=== PATIENT | female | born 1975 | race Caucasian/White ===

== ENCOUNTER 2016-09-06 21:46 | Emergency (ER) | payer MEDICAID ==
[~2016-09-06] VITALS: Ht 162.6 cm; Wt 104.5 kg
[2016-09-06] MEDS ORDERED: KETOROLAC 30 MG/1 ML IM ONE (23:00)
[2016-09-06] MEDS ORDERED: HYDROmorphone 2 MG/ML, 1ML IM ONE (23:00)
[2016-09-06] MEDS ORDERED: HYDROmorphone 2 MG/ML, 1ML ONE (23:06)
[2016-09-06] MEDS ORDERED: KETOROLAC 30 MG/1 ML ONE (23:06)
[2016-09-06] MEDS ORDERED: DEXAMETHASONE 4 MG TABLET PO ONE (23:30)
[2016-09-06] MEDS ORDERED: DEXAMETHASONE 4 MG/ML, 5ML ONE (23:39)
[2016-09-06] MEDS ORDERED: DEXAMETHASONE 4 MG TABLET ONE (23:47)
[2016-09-07] MEDS ORDERED: DIAZEPAM 5 MG TABLET PO ONE (01:00)
[2016-09-07] MEDS ORDERED: DIAZEPAM 5 MG TABLET ONE (01:04)
[2016-09-07] MEDS ORDERED: OXYcodone/APAP 10/325MG TABLET PO ONE (02:00)
[2016-09-07] MEDS ORDERED: OXYcodone/APAP 10/325MG TABLET ONE (02:02)
[2016-09-07 02:07] VITALS: BP 138/89
== END 2016-09-07 02:11 | disposition home or self-care (01) ==
LOC: ED 23:59
DX: M54.41 Lumbago with sciatica, right side (principal)
CPT/HCPCS: 96372; 99284; J1170; J1885

== ENCOUNTER 2017-01-03 05:19 | Day surgery (SDC) | payer MEDICAID ==
[~2017-01-03] VITALS: Ht 162.6 cm; Wt 98.6 kg
[2017-01-03] MEDS ORDERED: LACTATED RINGERS 1,000 ML IV SCH (06:20)
[2017-01-03] MEDS ORDERED: GABA100C PO (06:23)
[2017-01-03] MEDS ORDERED: ESCI20TA10 PO (06:23)
[2017-01-03] MEDS ORDERED: LEVO88TA4 PO (06:23)
[2017-01-03] MEDS ORDERED: LOSA100T6 PO (06:23)
[2017-01-03 06:27] VITALS: BP 117/78
[2017-01-03 06:28] LABS: HCG UR LOT HCG7030192
[2017-01-03] MEDS ORDERED: LIDOCAINE 1%, 2ML ONE (06:33)
[2017-01-03 06:36] LABS: HCG UR OBC PASS
[2017-01-03] MEDS ORDERED: PROPOFOL 10 MG/ML, 20ML ONE (06:52)
[2017-01-03] MEDS ORDERED: MIDAZOLAM 1 MG/ML, 2ML ONE ×2 (06:52→09:25)
[2017-01-03] MEDS ORDERED: FENTANYL PF 100 MCG/2ML ONE ×3 (06:52→08:30)
[2017-01-03] MEDS ORDERED: ROCURONIUM 10 MG/ML ONE ×2 (06:52→07:26)
[2017-01-03] MEDS ORDERED: SUCCINYLCHOLINE 20 MG/ML, 10ML ONE (06:53)
[2017-01-03] MEDS ORDERED: BUPIVACAINE LIPOSOME/PF INFIL ONE (06:54)
[2017-01-03] MEDS ORDERED: BUPIVACAINE/PF 0.5% ONE (06:55)
[2017-01-03] MEDS ORDERED: TRANEXAMIC ACID 100 MG/ML, 10ML ONE (06:55)
[2017-01-03] MEDS ORDERED: THROMBIN 5,000 UNIT VIAL TP ONE (06:56)
[2017-01-03] MEDS ORDERED: LIDOCAINE/MPF 2%-EPI 1:200K, 20 ML ONE (06:56)
[2017-01-03] MEDS ORDERED: VANCOMYCIN 1,000 MG ONE (06:56)
[2017-01-03] MEDS ORDERED: DEXAMETHASONE 4 MG/ML, 1ML ONE ×2 (07:16)
[2017-01-03] MEDS ORDERED: KETOROLAC 30 MG/1 ML ONE (07:26)
[2017-01-03] MEDS ORDERED: ONDANSETRON 2MG/ML, 2ML ONE (07:26)
[2017-01-03] MEDS ORDERED: KETAMINE 10 MG/ML, 20ML ONE (08:02)
[2017-01-03] MEDS ORDERED: LABETALOL 5MG/ML, 20ML IV PRN (08:30)
[2017-01-03] MEDS ORDERED: FENTANYL PF 100 MCG/2ML IV PRN (08:30)
[2017-01-03] MEDS ORDERED: MIDAZOLAM 1 MG/ML, 2ML IV PRN (08:30)
[2017-01-03] MEDS ORDERED: PROMETHAZINE 25 MG/ML, 1ML IV PRN (08:30)
[2017-01-03] MEDS ORDERED: hydrALAzine 20 MG/ML, 1ML IV PRN (08:30)
[2017-01-03] MEDS ORDERED: MEPERIDINE/PF 25MG/0.5ML IVPush PRN (08:30)
[2017-01-03] MEDS ORDERED: ACETAMINOPHEN 325 MG TABLET PO PRN (08:30)
[2017-01-03] MEDS ORDERED: ONDANSETRON 2MG/ML, 2ML IVPush PRN (08:30)
[2017-01-03] MEDS ORDERED: OXYcodone 5 MG/5 ML ORAL.SOL UDC PO PRN (08:30)
[2017-01-03] MEDS ORDERED: HYDROmorphone 1 MG/ML, 1ML ONE (08:59)
[2017-01-03] MEDS ORDERED: HYDROmorphone 2 MG/ML, 1ML ONE ×2 (09:18→09:45)
[2017-01-03] MEDS ORDERED: ACETAMINOPHEN 650 MG/20.3 ML UDC ONE (09:18)
[2017-01-03] MEDS ORDERED: OXYcodone 5 MG/5 ML ORAL.SOL UDC ONE (09:18)
[2017-01-03] MEDS: HYDROmorphone 1 MG/ML, 1ML IV PRN ×7 (09:20→09:55)
[2017-01-03] MEDS ORDERED: ALBUTEROL SULFATE 2.5 MG/3 ML ONE (10:19)
[2017-01-03] MEDS ORDERED: ALBUTEROL SULFATE 2.5 MG/3 ML NPPB PRN (10:30)
== END 2017-01-03 12:20 ==
LOC: OUT 05:19
PROVIDERS: ATTEND Orthopaedic Surgery Orthopaedic Surgery of the Spine
DX: M51.26 Other intervertebral disc displacement, lumbar region (principal); Z87.39 Personal history of other diseases of the musculoskeletal system and connective tissue; Z88.6 Allergy status to analgesic agent
CPT/HCPCS: 63030; 72100; 81025; 94640; C9290; J1100; J1170; J1885; J2250; J2405; J2704; J3010; J3370; J3490; J7120; J0330

== ENCOUNTER 2017-03-29 10:43 | Emergency (ER) | payer MEDICAID ==
[~2017-03-29] VITALS: Ht 154.9 cm; Wt 110.9 kg
[~2017-03-29 10:43] MED LIST: ESCI20TA10 PO; GABA100C PO; LEVO88TA4 PO; LOSA100T6 PO
[2017-03-29] MEDS ORDERED: SODIUM CHLORIDE 0.9% 1,000ML IVBOLUS ONE (12:30)
[2017-03-29] MEDS ORDERED: DIPHENHYDRAMINE 50 MG/ML, 1ML IV ONE (12:30)
[2017-03-29] MEDS ORDERED: KETOROLAC 30 MG/1 ML IVPush ONE (12:30)
[2017-03-29] MEDS ORDERED: METOCLOPRAMIDE 5 MG/ML, 2ML IVPush ONE (12:30)
[2017-03-29] MEDS ORDERED: ALBUTEROL/IPRATROPIUM 2.5MG/0.5MG, 3 ML NPPB ONE (12:30)
[2017-03-29] MEDS ORDERED: DEXAMETHASONE 4 MG/ML, 1ML IVPush ONE (12:30)
[2017-03-29] MEDS ORDERED: ACETAMINOPHEN 500 MG TABLET PO ONE (12:30)
[2017-03-29] MEDS ORDERED: SODIUM CHLORIDE FLUSH 10ML SYR IVF ONE (12:30)
[2017-03-29] MEDS ORDERED: DEXAMETHASONE 4 MG/ML, 1ML ONE (12:38)
[2017-03-29] MEDS ORDERED: KETOROLAC 30 MG/1 ML ONE (12:38)
[2017-03-29] MEDS ORDERED: METOCLOPRAMIDE 5 MG/ML, 2ML ONE (12:38)
[2017-03-29] MEDS ORDERED: DIPHENHYDRAMINE 50 MG/ML, 1ML ONE (12:38)
[2017-03-29] MEDS ORDERED: ACETAMINOPHEN 500 MG TABLET ONE (12:38)
[2017-03-29] MEDS ORDERED: ALBUTEROL/IPRATROPIUM 2.5MG/0.5MG, 3 ML ONE (12:55)
[2017-03-29 12:56] LABS: RAPID INFLUENZA A Negative (Negative); RAPID INFLUENZA B Negative (Negative)
[2017-03-29 13:14] LABS: BASOPHILS # (AUTO) 0.18 x10^3/uL (0-0.1); BASOPHILS % (AUTO) 2 % (0-1); EOSINOPHILS % (AUTO) 4 % (1-7); LYMPHOCYTES # (AUTO) 3.33 x10^3/uL (1-3.4); LYMPHOCYTES % (AUTO) 34 % (22-44); MD NO; MEAN CORPUSCULAR HGB CONC 33.9 g/dL (32.4-35.8); MEAN CORPUSCULAR VOLUME 97.3 fL (80-100); MEAN PLATELET VOLUME 7.9 fL (7.4-10.4); MONOCYTES # (AUTO) 0.73 x10^3/uL (0.2-0.8); MONOCYTES % (AUTO) 7 % (2-9); NEUTROPHILS % (AUTO) 53 % (42-75); PLATELET COUNT 297 x10^3/uL (130-400); RED CELL DISTRIBUTION WIDTH 14.9 % (9.6-15.2)
[2017-03-29 13:26] LABS: ALBUMIN 3.3 g/dL (3.4-5.0); ANION GAP 7 mmol/L (5-15); CALCIUM 9.2 mg/dL (8.5-10.1); CHLORIDE 108 mmol/L (98-107)
[2017-03-29 13:32] LABS: ALANINE AMINOTRANSFERASE 20 U/L (12-78); ALKALINE PHOSPHATASE 62 U/L (45-117); BILIRUBIN,TOTAL 0.3 mg/dL (0.2-1.0); CREATININE 0.69 mg/dL (0.55-1.02); TOTAL PROTEIN 7.2 g/dL (6.4-8.2)
[2017-03-29 14:31] VITALS: BP 132/73
== END 2017-03-29 14:56 | disposition home or self-care (01) ==
LOC: ED 13:47
DX: J20.9 Acute bronchitis, unspecified (principal); J01.00 Acute maxillary sinusitis, unspecified; E03.9 Hypothyroidism, unspecified; I10 Essential (primary) hypertension
CPT/HCPCS: 36415; 71046; 80053; 84703; 85025; 87400; 94640; 96361; 96374; 96375; 99285; J1100; J1200; J1885; J2765; J7030; J7620